=== PATIENT | female | born 1940 | race Caucasian/White ===

== ENCOUNTER 2024-12-23 04:31 | Emergency (ER) | payer OTHER ==
[~2024-12-23] VITALS: Ht 157.5 cm; Wt 56.8 kg
--- NOTE | 2024-12-23 05:22 | ED.PDOC ---
Musculoskeletal HPI Comments 84 y/o F is BIBA for c/c left shoulder pain, that radiates to her left arm and wrist. Endorsement of sudden, unprovoked, and atraumatic onset of pain, which awoken her, this morning. Denial of any additional pertinent history or events. Denial of any numbness, tingling, weakness, chest pain, or further associated symptoms. Chief Complaint: Upper Extremity Time Seen by MD: 05:10 Reviewed Notes: Nurses Notes, Gambling Floor Supervisor Notes, Medications, Allergies Allergies: Coded Allergies: NO KNOWN ALLERGIES (Unverified , 12/23/24) Information Source: Patient, Emergency Med Personnel Mode of Arrival: EMS Past Medical History PAST MEDICAL HISTORY: Denies Surgical History: Denies all surgeries DRAW FURNACE TENDER History: No Pertinent DRAW FURNACE TENDER History All Other Systems: Reviewed and Negative (As per HPI) Physical Exam General Appearance: No Apparent Distress, Normal, Other (elderly appearing ) HEENT: Normal ENT Inspection, Pharynx Normal, TMs Normal Neck: Full Range of Motion, Non-Tender, Normal, Normal Inspection Respiratory: Chest Non-Tender, Lungs Clear, No Accessory Muscle Use, No Respiratory Distress, Normal Breath Sounds Cardiovascular: No Edema, No JVD, No Murmur, No Gallop, Normal Peripheral Pulses, Regular Rate/Rhythm Breast Exam: Deferred Gastrointestinal: No Organomegaly, Non Tender, No Pulsatile Mass, Normal Bowel Sounds, Soft Genitalia: Deferred Pelvic: Deferred Rectal: Deferred Extremities: No calf tenderness, Normal capillary refill, Normal inspection, Normal range of motion, No pedal edema, Tender (left shoulder, mild ) Musculoskeletal : Apperance: Normal Neurologic: Alert, auto leasing manager II-XII nml as Tested, No Motor Deficits, Normal Affect, Normal Mood, No Sensory Deficits Cerebellar Function: Normal Reflexes: Normal Skin: Dry, Normal Color, Warm Lymphatic: No Adenopathy Was a procedure done? Was a procedure done?: No Differential Diagnosis EXT Differential Diagnosis: Fracture, Sprain, Dislocation, Strain, Rheumatoid, Juliet rovascular injury, Arthritis X-Ray, Labs, Meds, VS Vital Signs Date Time Temp Pulse Resp B/P (MAP) Pulse Ox O2 Delivery O2 Flow Rate FiO2 12/23/24 04:51 98.7 58 15 112/66 98 98.7 Lab Test 12/23/24 05:30 Range/Units White Blood Count 11.2 H 4.4-10.8 10^3/uL Red Blood Count 3.83 L 4.0-5.20 10^6/uL Hemoglobin 13.3 12.2-16.2 g/dL Hematocrit 39.5 36.0-46.0 % Mean Corpuscular Volume 103.1 H 80.0-100.0 fL Mean Corpuscular Hemoglobin 34.7 H 28.0-32.0 pg Mean Corpuscular Hemoglobin Concent 33.6 32.0-36.0 g/dL Red Cell Distribution Width 15.0 H 11.8-14.3 % Platelet Count 241 140-450 10^3/uL Mean Platelet Volume 8.2 6.9-10.8 fL Neutrophils (%) (Auto) 68.0 37.0-80.0 % Lymphocytes (%) (Auto) 19.9 10.0-50.0 % Monocytes (%) (Auto) 10.3 0.0-12.0 % Eosinophils (%) (Auto) 1.3 0.0-7.0 % Basophils (%) (Auto) 0.5 0.0-2.0 % Neutrophils # (Auto) 7.6 1.6-8.6 10 ^3/uL Lymphocytes # (Auto) 2.2 0.4-5.4 10 ^3/uL Monocytes # (Auto) 1.2 0-1.3 10 ^3/uL Eosinophils # (Auto) 0.2 0-0.8 10 ^3/uL Basophils # (Auto) 0.1 0-0.2 10 ^3/uL Nucleated Red Blood Cells 0.0 % Sodium Level 140 136-145 mmol/L Potassium Level 3.7 3.5-5.1 mmol/L Chloride Level 106 98-107 mmol/L Carbon Dioxide Level 22 20-31 mmol/L Anion Gap 12 5-15 Blood Urea Nitrogen 9 9-23 mg/dL Creatinine 0.99 0.550-1.02 mg/dL Glomerular Filtration Rate Calc 57 >90 mL/min BUN/Creatinine Ratio 9.1 L 10.0-20.0 Serum Glucose 104 74-106 mg/dL Calcium Level 9.1 8.7-10.4 mg/dL Total Bilirubin 0.5 0.2-1.0 mg/dL Aspartate Amino Transferase (AST) 25 13-40 U/L Alanine Aminotransferase (ALT) 15 7-40 U/L Alkaline Phosphatase 46 46-116 U/L Troponin I High Sensitivity 13 </=34 ng/L Total Protein 7.3 5.7-8.2 g/dL Albumin 4.0 3.2-4.8 g/dL Time of 1ST Reevaluation: 05:40 Reevaluation 1ST: Unchanged Patient Education/Counseling: Treatment, Need For Follow Up Family Education/Counseling: No Family Present Departure 1 Departure Time of Disposition: 05:58 Impression: Primary Impression: Atrial fibrillation Additional Impression: Intermediate coronary syndrome Disposition: 02 SHORT TERM HOSPITAL Admit to: Tele Condition: Guarded Discharged With: Self Comments 84-year-old female with a history of atrial fibrillation now with some pain to the top part of her left chest and shoulder that radiates to her left arm. Patient in AFib on EKG. With her risk factors the patient will be needed to transfer to [place] for further cardiac workup. Critical Care Note Critical Care Time?: Yes (35 min-critical care time only) Critical care comment: Total critical care time: Approximately 36 minutes Due to a high probability of clinically significant, life threatening deterioration, the patient required my highest level of preparedness to intervene emergently and I personally spent this critical care time directly and personally managing the patient. This critical care time included obtaining a h istory; examining the patient; pulse oximetry; ordering and review of studies; arranging urgent treatment with development of a management plan; evaluation of patient's response to treatment; frequent reassessment; and, discussions with other providers. This critical care time was performed to assess and manage the high probability of imminent, life-threatening deterioration that could result in multi-organ failure. It was exclusive of separately billable procedures and treating other patients. Stability Stability form required: No Heart Score Heart Score: Heart Score Response (Comments) Value History Moderate Suspicious 1 EKG Repolarization Disturb 1 Age >65 2 Risk Factors 1 or 2 risk factors 1 Troponin Normal limit 0 Total 5 I personally scribed for YUNIEL ARANGO MD ([email or web address]) on 12/23/24 at 05:22. Electronically submitted by Dany Berg [email or web address]). YUNIEL ARANGO MD Dec 23, 2024 05:22
--- NOTE | 2024-12-23 05:30 | DVH ---
CHEST RADIOGRAPH Indication: chest pain Technique: Single frontal view of the chest was obtained COMPARISON: None FINDINGS: Lines and Tubes: None Lungs: Clear Pleura: No effusion. No pneumothorax. Cardiomediastinal contours: Unremarkable Bones: Unremarkable IMPRESSION: 1. No acute disease.
--- NOTE | 2024-12-23 05:38 | ECG ---
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
[2024-12-23 05:50] LABS: Hematocrit 39.5 % (36.0-46.0); Hemoglobin 13.3 g/dL (12.2-16.2); Mean Corpuscular Hemoglobin 34.7 pg (28.0-32.0); Mean Corpuscular Volume 103.1 fL (80.0-100.0); Nucleated Red Blood Cells % 0.0 %
[2024-12-23 05:55] LABS: Alanine Aminotransferase 15 U/L (7-40); Albumin 4.0 g/dL (3.2-4.8); Alkaline Phosphatase 46 U/L (46-116); Anion Gap 12 (5-15); BUN/Creatinine Ratio 9.1 (10.0-20.0); Calcium 9.1 mg/dL (8.7-10.4); Carbon Dioxide 22 mmol/L (20-31); Chloride 106 mmol/L (98-107); Glucose 104 mg/dL (74-106); Potassium 3.7 mmol/L (3.5-5.1); Sodium 140 mmol/L (136-145); Total Protein 7.3 g/dL (5.7-8.2)
[2024-12-23 05:56] LABS: Bilirubin, Total 0.5 mg/dL (0.2-1.0); Blood Urea Nitrogen 9 mg/dL (9-23)
[2024-12-23 06:17] VITALS: BP 92/61; PULSE 71; RESP 14; RESP 19; TEMP 98.2; O2SAT 95
== END 2024-12-23 08:18 | disposition home or self-care (01) ==
LOC: ER 04:31 → EDBD 04:31 → ER 08:18
DX: I48.91 Unspecified atrial fibrillation (principal); I20.0 Unstable angina
CPT/HCPCS: 36415; 71045; 80053; 84484; 85025; 93005; 99291